=== PATIENT | male | born 1960 | race Caucasian/White ===

== ENCOUNTER 2016-03-26 12:50 | Emergency (ER) | payer OTHER ==
[2016-03-26 13:04] VITALS: TEMP 97.7; BMI 24.8
--- NOTE | 2016-03-26 14:03 | DIRPT ---
CLINICAL DATA: Pain following fall EXAM: RIGHT RIBS AND CHEST - 3+ VIEW COMPARISON: February 13, 2016 FINDINGS: Frontal chest as well as oblique and cone-down lower rib images were obtained. There is a nipple shadow on the right. There is mild atelectatic change in both bases. There is mild scarring in the left base. There is no edema or consolidation. The heart size and pulmonary vascularity are normal. No adenopathy. There is no demonstrable pneumothorax or effusion. There is a fracture of the lateral right sixth rib. No other fracture apparent. IMPRESSION: Fracture lateral right sixth rib. No pneumothorax. Mild bibasilar atelectasis. These results will be called to the ordering clinician or strategic partnership representative by the Radiologist Conference Services Coordinator, and communication documented in the PACS or [employer] Dashboard. Electronically Signed By: Elder Rodriguez III, M.D. On: 03/26/2016 14:00
[2016-03-26 14:42] VITALS: BP 112/66; PULSE 61
[2016-03-26] MEDS ORDERED: OXYCODONE HCL 5 MG TABLET PO ONE (14:48)
--- NOTE | 2016-03-26 14:49 | EDPRACDOC ---
- General Information Chief Complaint: Rib Pain Stated Complaint: RIGHT RIB PAIN - SHOB Time Seen by Provider: 03/26/16 14:48 Information Source: Patient Mode of Arrival: Car Home Medications: Home Medications Hydrocodone Bit/Acetaminophen [[place] 5-325 Tablet] 1 each PO Q4H #10 tab Ibuprofen 600 mg PO TID #20 tablet 02/13/16 Omeprazole 40 mg PO DAILY 02/13/16 Oxycodone Immediate Release [Oxycodone Immediate Release (OxyIR)] 5 - 10 mg PO Q4H PRN #20 tab 03/26/16 Allergies/Adverse Reactions: Allergies Allergy/AdvReac Type Severity Reaction Status Date / Time iodine Allergy Unknown See Verified 03/26/16 13:04 Comments Penicillins Allergy Unknown See Verified 03/26/16 13:04 Comments Iodinated Contrast Media - Allergy Hives* Verified 03/26/16 13:04 IV Dye shellfish derived Allergy Hives* Verified 03/26/16 13:04 - History of Present Illness Onset: 1.5 HOUR HPI: PT STATES SLIPPED ON WET GRASS FELL LANDED ON RIGHT SIDE. C/O RIGHT LATERAL CHEST WALL SHARP STABBING PAIN. Chest Wall Injury Location: Reports: Lateral (RT) Context: Reports: Fall Pain Quality: Reports: Sharp, Stabbing Pain Severity: Reports: Moderate Pain Worsens With: Reports: Coughing, Breathing, Movement, Position Shortness of Breath: Moderate Associated Signs and Symptoms: Reports: None ED Past Medical History - History Reviewed Yes Nurses notes reviewed and agree except as marked Travel Outside of [place] in the Last 3 Months?: No - Patient Medical History Cardiac History: Reports: Hypertension Respiratory History: Reports: Asthma ( CHILD) GI/ History: Reports: Gastroesophageal Reflux Psychological History: Denies: Depression Systemic History: Denies: Cancer Surgical History: Reports: Hernia Surgery (UMBILICAL), Tonsillectomy/ Adnoidectomy - Family Medical History Denies: Hypertension, Diabetes, Cancer, Stroke, Cardiac Disorders - Social Medical History Smoking Status: Heavy tobacco smoker (5 or more cigarettes/day or daily pipe/ cigar) ETOH: None Substance Abuse: None Lives With: Spouse Lives In: Home EDM Review of Systems - Review of Systems ROS Negative Except as Marked: Yes All systems reviewed and were negative except as marked Constitutional: No Symptoms Reported. negative: Fever, Chills, Weakness, Fatigue, Loss of Appetite Eyes: No Symptoms Reported. negative: Redness, Blurred Vision, Double Vision, Discharge, Pain, Light Sensitive, Photophobia Ears: No Symptoms Reported. negative: Pain, Hearing Loss, Drainage, Ear Pulling Throat: No Symptoms Reported. negative: Pain, Swelling Nose: No Symptoms Reported. negative: Congestion, Bleeding, Discharge, Injection, Swelling, Deformity, Ecchymosis, Tender, Abrasion, Laceration Mouth: No Symptoms Reported. negative: Pain, Drooling Respiratory: No Symptoms Reported. negative: Cough, Brassy Cough, Barky Cough, Shortness of Breath, Wheezing, Hemoptysis Cardiovascular: No Symptoms Reported. negative: Chest Pain, Palpitations, Syncope, Edema, Orthopnea, PND, Skin Mottling, Cyanosis Gastrointestinal: No Symptoms Reported. negative: Pain, Constipation, Nausea, Vomiting, Diarrhea, Melena, Formula Intolerance Genitourinary: No Symptoms Reported. negative: Dysuria, Hematuria, Frequency, Discharge, Bleeding, Testicular Pain, Neurological: No Symptoms Reported. negative: Headache, Dizziness, Seizure, Numbness, Weakness, Speech Difficulty, Gait Difficulty Musculoskeletal: Chestwall (RT LATERAL). negative: Arm, Ankle, Back, Elbow, Forearm, Femur, Foot, Hand, Hip, Knee, Leg, Neck, Pelvis, Ribs, Shoulder, Wrist Integumentary: No Symptoms Reported. negative: Itching, Rash, Bruising, Wound Allergic/Immunologic: No Symptoms Reported. negative: Hives, Itching Hematologic: No Symptoms Reported. negative: Lymphadenopathy, Easy Bruising, Easy Bleeding Endocrine: No Symptoms Reported. negative: Weight Gain, Weight Loss Psychiatric: No Symptoms Reported. negative: Anxiety, Depression, Hallucinations, Insomnia, Suicidal - Physical Exam Constitutional: No apparent distress, Alert (Awake) Oriented to: Time, Person, Place Last recorded Vital Signs: Last Vital Signs Temp 97.7 F 03/26/16 14:41 Pulse 61 03/26/16 14:41 Resp 18 03/26/16 14:41 BP 112/66 03/26/16 14:41 Pulse Ox 97 03/26/16 14:41 Oxygen Pulse Oxygen Saturation 97 O2 Device Room Air Oxygen Flow Rate Fraction of Inspired Oxygen ( FIO2) - HEENT Head: Normal ( normocephalic) Eye Exam: Normal (PERRL, EOMI, Sclera white) Oropharynx: Normal (Pharynx:Moist without exudate,Gums-no swelling) Tympanic Membrane: Normal ENT EAC: Normal TMJ: Normal Nose: No Symptoms Reported (septum midline) Neck: Normal (FROM, trachea at midline) - Respiratory/Cardiovascular Respiratory: Normal - CTA (BBS clear to auscultation without adventitious sounds ) Cardiovascular: Normal (RRR without murmur, gallop or rub) - GI Auscultation: Normal (NABS) Palpation: Normal (Soft,No rebound or guarding, non distended) Tenderness: Non tender Hooper's Sign: Negative - Musculoskeletal Back: Normal (Non-Tender) Extremities: Normal (Normal tone, Pulses 2+ No cyanosis or edema, FROM) - Integumentary Skin: Normal, Warm, Dry Lymphatics: Normal (no adenopathy) - Neurologic Memory Impaired: Normal Motor Function: Normal (Normal tone, Pulses 2+ No cyanosis or edema, FROM) Cranial Nerve: Normal (CN II-X11 intact sensation, strength 5/5) Cerebellar: Normal Mood Description: Normal Perception: Normal ED Chest Wall Pain Exam - Chest Wall Pain Chest: Tender - Differential Diagnosis Chest Wall Contusion, Pneumothorax, Rib Fracture - Diagnostic Imaging CXR Image interpreted by: Radiologist EXAM: RIGHT RIBS AND CHEST - 3+ VIEW COMPARISON: February 13, 2016 FINDINGS: Frontal chest as well as oblique and cone-down lower rib images were obtained. There is a nipple shadow on the right. There is mild atelectatic change in both bases. There is mild scarring in the left base. There is no edema or consolidation. The heart size and pulmonary vascularity are normal. No adenopathy. There is no demonstrable pneumothorax or effusion. There is a fracture of the lateral right sixth rib. No other fracture apparent. IMPRESSION: Fracture lateral right sixth rib. No pneumothorax. Mild bibasilar atelectasis. Decision Time to Discharge: 15:00 - Departure Disposition: Home Condition: Stable Final Diagnosis: RIGHT 6TH RIB FRACTURE Instructions: Rib Fracture (ED) Education/Counseling Given To: Patient Education/Counseling Given Regarding: Diagnosis, Treatment, Prognosis, Follow Up Referrals: Charli Weiner MD [Primary Care Provider] - One Week Prescriptions: Oxycodone Immediate Release [Oxycodone Immediate Release (OxyIR)] 5 - 10 mg PO Q4H PRN #20 tab PRN Reason: Pain Additional Instructions: TAKE ONE DEEP BREATH EVERY 15MINUTES TO PREVENT PNEUMONIA. RETURN FOR WORSE OR DIFFERENT SYMPTOMS. DO NOT WRAP RIBS.
== END 2016-03-26 15:21 | disposition home or self-care (01) ==
LOC: ED 12:50 → EDMC 15:21
DX: S22.31XA Fracture of one rib, right side, initial encounter for closed fracture (principal); W01.0XXA Fall on same level from slipping, tripping and stumbling without subsequent striking against object, initial encounter; I10 Essential (primary) hypertension; K21.9 Gastro-esophageal reflux disease without esophagitis; F17.200 Nicotine dependence, unspecified, uncomplicated
CPT/HCPCS: 71101; 99282; J3490

== ENCOUNTER 2016-03-27 16:55 | Emergency (ER) | payer OTHER ==
[2016-03-27 16:56] VITALS: BMI 24.8
[2016-03-27 17:23] VITALS: TEMP 99.3
--- NOTE | 2016-03-27 19:33 | EDPRACDOC ---
- General Information Chief Complaint: Rib Pain Stated Complaint: DX FX RIB YESTERDAY NOW COUGHING UP BLOOD Time Seen by Provider: 03/27/16 19:10 Information Source: Patient Mode of Arrival: Car Home Medications: Home Medications Ibuprofen 600 mg PO TID #20 tablet 02/13/16 Omeprazole 40 mg PO DAILY 02/13/16 Oxycodone Immediate Release [Oxycodone Immediate Release (OxyIR)] 5 - 10 mg PO Q4H PRN #20 tab 03/26/16 Oxycodone Immediate Release [Oxycodone Immediate Release (OxyIR)] 5 mg PO Q6H PRN #30 tab 03/27/16 Allergies/Adverse Reactions: Allergies Allergy/AdvReac Type Severity Reaction Status Date / Time iodine Allergy Unknown See Verified 03/26/16 13:04 Comments Penicillins Allergy Unknown See Verified 03/26/16 13:04 Comments Iodinated Contrast Media - Allergy Hives* Verified 03/26/16 13:04 IV Dye shellfish derived Allergy Hives* Verified 03/26/16 13:04 - History of Present Illness Onset: [employer] HPI: PT PRESENTS TODAY WITH HEMOPTYSIS AFTER CHEST WALL INJURY YESTERDAY. PT WAS SEEN YESTERDAY AND DX WITH FRACTURE OF THE 7TH RIGHT RIB AND TODAY WHILE AT WORK , PT COUGHED AND NOTICED BLOOD STREAKING IN HIS MUCUS. MILDLY WORSENED VASQUEZ. NO APPARENT DISTRESS. DENIES CP. Chest Wall Injury Location: Reports: Lateral Context: Reports: Fall Pain Quality: Reports: Sharp Pain Severity: Reports: Moderate Pain Worsens With: Reports: Exertion, Coughing Shortness of Breath: Mild Associated Signs and Symptoms: Reports: Hemoptysis ED Past Medical History - History Reviewed Yes Nurses notes reviewed and agree except as marked - Patient Medical History Cardiac History: Reports: Hypertension Respiratory History: Reports: Asthma ( CHILD) GI/ History: Reports: Gastroesophageal Reflux Psychological History: Denies: Depression Systemic History: Denies: Cancer Surgical History: Reports: Hernia Surgery (UMBILICAL), Tonsillectomy/ Adnoidectomy - Family Medical History Denies: Hypertension, Diabetes, Cancer, Stroke, Cardiac Disorders - Social Medical History Smoking Status: Heavy tobacco smoker (5 or more cigarettes/day or daily pipe/ cigar) EDM Review of Systems - Review of Systems ROS Negative Except as Marked: Yes All systems reviewed and were negative except as marked Constitutional: No Symptoms Reported Respiratory: Cough, Hemoptysis, Shortness of Breath Cardiovascular: No Symptoms Reported Gastrointestinal: No Symptoms Reported Neurological: No Symptoms Reported Musculoskeletal: Chestwall Integumentary: No Symptoms Reported - Physical Exam Constitutional: Alert (Awake), No apparent distress Oriented to: Time, Person, Place Last recorded Vital Signs: Last Vital Signs Temp 99.3 F 03/27/16 17:21 Pulse 62 03/27/16 19:17 Resp 18 03/27/16 19:17 BP 141/67 03/27/16 19:17 Pulse Ox 96 03/27/16 19:17 Oxygen Pulse Oxygen Saturation 96 O2 Device Room Air Oxygen Flow Rate Fraction of Inspired Oxygen ( FIO2) - HEENT Head: Normal Eye Exam: Normal Neck: Normal, Denies Pain, Midline - Respiratory/Cardiovascular Respiratory: Normal - CTA Cardiovascular: Normal - GI Palpation: Normal Tenderness: Non tender - Musculoskeletal Back: Normal Extremities: Normal - Integumentary Skin: Normal Lymphatics: Normal - Neurologic Cerebellar: Normal Mood Description: Normal Thought: Coherent Perception: Normal ED Chest Wall Pain Exam - Chest Wall Pain Chest: Tender - Additional Information CASE DISCUSSED WITH DR. LOUIS WHO ALSO EXAMINED PT. WILL GIVE INCENTIVE SPIROMETER AND MORE PAIN MEDICATION AND OK FOR HOME. Decision Time to Discharge: 20:18 - Departure Disposition: Home Condition: Stable Final Diagnosis: Fracture of multiple ribs Pulmonary contusion Qualifiers: Encounter type: initial encounter Laterality: right Qualified Code(s): S27.321A - Contusion of lung, unilateral, initial encounter Instructions: Rib Fracture (ED) Education/Counseling Given To: Patient Education/Counseling Given Regarding: Diagnosis, Treatment, Follow Up Referrals: Charli Weiner MD [Primary Care Provider] - One Week Prescriptions: Oxycodone Immediate Release [Oxycodone Immediate Release (OxyIR)] 5 mg PO Q6H PRN #30 tab PRN Reason: Pain Additional Instructions: USE INCENTIVE SPIROMETER INSTRUCTED AND FOLLOW UP WITH PCP IN 2-3 DAYS IF NEEDED.
--- NOTE | 2016-03-27 20:11 | DIRPT ---
CLINICAL DATA: Patient fell yesterday and found to have right sixth rib fracture on plain films. Today with increased pain and hemoptysis. Allergic to intravenous contrast material. EXAM: CT CHEST WITHOUT CONTRAST TECHNIQUE: Multidetector CT imaging of the chest was performed following the standard protocol without IV contrast. COMPARISON: Right rib radiographs 03/26/2016 FINDINGS: Normal heart size. Normal caliber thoracic aorta. Mild aortic calcification. No pericardial effusions. Esophagus is decompressed. No significant lymphadenopathy in the chest. Small focal subpleural scarring and cystic changes in the right lung possibly representing small contusions. No significant airspace disease or consolidation. No pneumothorax. Left lung is clear. Airways appear patent. Included portions of the upper abdominal organs are grossly unremarkable. Nondisplaced acute fractures are demonstrated in the right fourth, fifth, and sixth ribs. Old appearing fracture deformity of the left clavicle. Old left rib fractures. Sternum and thoracic spine appear intact. IMPRESSION: Acute fractures of the right fourth, fifth, and sixth ribs. Mild pleural-based infiltration and small cysts on the right may represent small areas of contusion. No significant consolidation. No pleural effusion or pneumothorax. Electronically Signed By: Elder Samano M.D. On: 03/27/2016 20:08
[2016-03-27 20:54] VITALS: BP 136/72; PULSE 66
== END 2016-03-27 20:41 | disposition home or self-care (01) ==
LOC: ED 16:55 → EDMC 20:41
DX: S22.49XA Multiple fractures of ribs, unspecified side, initial encounter for closed fracture (principal); X58.XXXA Exposure to other specified factors, initial encounter; Y93.9 Activity, unspecified
CPT/HCPCS: 71250; 99282; G0237